=== PATIENT | male | born 1975 | race Caucasian/White ===

== ENCOUNTER 2020-03-04 08:36 | Emergency (ER) | payer OTHER ==
[2020-03-04 09:43] LABS: HEMOGLOBIN 16.6 gm/dl (14.0-17.5); RED BLOOD COUNT 5.33 M/UL (4.20-5.50); WHITE BLOOD COUNT 4.2 K/UL (4.5-11.0)
[2020-03-04 10:12] LABS: BUN/CREATININE RATIO 14 (0-10)
[2020-09-04] MEDS ORDERED: POTASSIUM CHLO20 ME1 PO (12:19)
[2020-09-04] MEDS ORDERED: BREO ELLIPTA 21 EACH HHN (12:21)
[2020-09-04] MEDS ORDERED: MOBIC15 MG PO (12:22)
[2020-09-04] MEDS ORDERED: MUCINEX600 MG PO ×2 (12:24→12:25)
[2020-09-04] MEDS ORDERED: ALKA-SELTZER D1 EACH PO (12:27)
[2020-09-04] MEDS ORDERED: IBU-200200 MG PO (12:28)
[2020-09-04] MEDS ORDERED: PEPCID20 MG PO (12:29)
== END 2020-03-04 11:15 | disposition home or self-care (01) ==
LOC: ER1 08:36
PROVIDERS: Physician Assistant
DX: U07.1 COVID-19 (principal); E87.6 Hypokalemia; J45.909 Unspecified asthma, uncomplicated
CPT/HCPCS: 71045; 80053; 85025; 93005; 99285

== ENCOUNTER → 2020-04-03 | Outpatient (CLI) | payer OTHER ==
[~2020-04-03] MED LIST: ALKA-SELTZER D1 EACH PO; BREO ELLIPTA 21 EACH HHN; BREZTRI AEROS10.7 GM INH; CELEBREX200 MG PO; CETIRIZINE HCL10 MG PO; FLONASE 0.05% N16 GM; GABAPENTIN300 MG PO; HYGROTON TAB 2525 MG PO; IBU-200200 MG PO; IBUPROFEN200 M1 PO; MELOXICAM15 MG PO; MOBIC15 MG PO; MONTELUKAST SOD10 MG PO; MUCINEX600 MG PO; OMEGA 3 FISH O1 EACH PO; OSTEO BI-FLEX1 EAC2 PO; PATIENT'S OWN MEDICA PO; PEPCID20 MG PO; POTASSIUM CHLO20 ME1 PO; ROXICODONE TAB 55 MG GT; ROXICODONE5 MG PO; VENTOLIN HFA 66.7 GM INH; VITAMIN B-121000 MC3 PO; ZOFRAN 4 MG TAB4 MG PO; [UNRECOGNIZED DRUG - OTHER] PO; [UNRECOGNIZED DRUG - OTHER] PO
== END ==
LOC: KOH-I 08:13
DX: M19.012 Primary osteoarthritis, left shoulder (principal)
CPT/HCPCS: 73200

== ENCOUNTER → 2020-05-16 | Outpatient (CLI) | payer OTHER ==
[2020-05-16 12:53] LABS: HEMOGLOBIN 16.8 gm/dl (14.0-17.5); RED BLOOD COUNT 5.32 M/UL (4.20-5.50)
[2020-05-16 13:10] LABS: BUN/CREATININE RATIO 17 (0-10)
== END ==
LOC: OPSV2 11:51 → EDSTATUS 12:00 → OPSV2 12:00
PROVIDERS: Orthopaedic Surgery
DX: Z01.812 Encounter for preprocedural laboratory examination (principal); Z01.810 Encounter for preprocedural cardiovascular examination; Z01.818 Encounter for other preprocedural examination; M19.012 Primary osteoarthritis, left shoulder
CPT/HCPCS: 36415; 71046; 80048; 81001; 85025; 85610; 85730; 87081; 93005

== ENCOUNTER 2020-05-24 05:59 | Inpatient (IN) | payer OTHER ==
[~2020-05-24] VITALS: Ht 190.5 cm; Wt 159.2 kg
[2020-05-24] MEDS ORDERED: CETIRIZINE HCL10 MG PO (06:53)
[2020-05-24] MEDS ORDERED: FLONASE 0.05% N16 GM (06:53)
[2020-05-24] MEDS ORDERED: HYGROTON TAB 2525 MG PO (06:54)
[2020-05-24] MEDS ORDERED: MONTELUKAST SOD10 MG PO (06:54)
[2020-05-24] MEDS ORDERED: VENTOLIN HFA 66.7 GM INH (06:55)
[2020-05-24] MEDS ORDERED: [UNRECOGNIZED DRUG - OTHER] PO (06:55)
[2020-05-24] MEDS ORDERED: BREZTRI AEROS10.7 GM INH (06:55)
[2020-05-24] MEDS ORDERED: [UNRECOGNIZED DRUG - OTHER] PO (06:56)
[2020-05-24] MEDS ORDERED: IBUPROFEN200 M1 PO (06:56)
[2020-05-24] MEDS ORDERED: MELOXICAM15 MG PO (06:56)
[2020-05-24] MEDS ORDERED: OSTEO BI-FLEX1 EAC2 PO (06:57)
[2020-05-24] MEDS ORDERED: OMEGA 3 FISH O1 EACH PO (06:57)
[2020-05-24 15:54] LABS: HEMOGLOBIN 14.5 gm/dl (14.0-17.5); RED BLOOD COUNT 4.66 M/UL (4.20-5.50); WHITE BLOOD COUNT 13.2 K/UL (4.5-11.0)
[2020-05-24 16:10] LABS: BUN/CREATININE RATIO 23 (0-10)
[2020-05-25 03:41] LABS: RED BLOOD COUNT 4.5 M/UL (4.20-5.50)
[2020-05-25 04:09] LABS: BUN/CREATININE RATIO 18 (0-10)
[2020-05-25] MEDS ORDERED: GABAPENTIN300 MG PO ×2 (08:27→14:50)
[2020-05-25] MEDS ORDERED: PATIENT'S OWN MEDICA PO (08:27)
[2020-05-25] MEDS ORDERED: ZOFRAN 4 MG TAB4 MG PO ×2 (08:27→14:53)
[2020-05-25] MEDS ORDERED: CELEBREX200 MG PO ×2 (08:27→14:51)
[2020-05-25] MEDS ORDERED: ROXICODONE TAB 55 MG GT (08:27)
[2020-05-25] MEDS ORDERED: ROXICODONE5 MG PO (14:49)
[2020-09-04] MEDS ORDERED: POTASSIUM CHLO20 ME1 PO (12:19)
[2020-09-04] MEDS ORDERED: BREO ELLIPTA 21 EACH HHN (12:21)
[2020-09-04] MEDS ORDERED: MOBIC15 MG PO (12:22)
[2020-09-04] MEDS ORDERED: MUCINEX600 MG PO ×2 (12:24→12:25)
[2020-09-04] MEDS ORDERED: ALKA-SELTZER D1 EACH PO (12:27)
[2020-09-04] MEDS ORDERED: IBU-200200 MG PO (12:28)
[2020-09-04] MEDS ORDERED: PEPCID20 MG PO (12:29)
== END 2020-05-25 14:40 | disposition home or self-care (01) | DRG 483 ==
LOC: OR 05:59 → EDSTATUS 07:30 → M/S 14:50
PROVIDERS: Physician Assistant; ADMIT Orthopaedic Surgery
PROC: 0LS40ZZ Reposition Left Upper Arm Tendon, Open Approach (ICD-10-PCS; 2020-05-24)
PROC: 0RRK0JZ Replacement of Left Shoulder Joint with Synthetic Substitute, Open Approach (ICD-10-PCS; principal; 2020-05-24 07:30)
DX: M19.012 Primary osteoarthritis, left shoulder (principal); Z20.822 Contact with and (suspected) exposure to COVID-19; J45.909 Unspecified asthma, uncomplicated; Z79.899 Other long term (current) drug therapy; Z85.828 Personal history of other malignant neoplasm of skin; Z98.890 Other specified postprocedural states
CPT/HCPCS: 36415; 73020; 80048; 80053; 85025; 94664; 94760; 97162; C1713; C1776; J0592; J0690; J1100; J1885; J2001; J2250; J2270; J2405; J2704; J2710; J2795; J3010; J3370; J7120; U0003

== ENCOUNTER → 2020-08-20 | Outpatient (CLI) | payer OTHER | LOC: KOH-I 15:00 | DX: Z01.818 Encounter for other preprocedural examination (principal); M43.16 Spondylolisthesis, lumbar region | CPT/HCPCS: 72131 ==

== ENCOUNTER → 2020-09-04 | Outpatient (CLI) | payer OTHER ==
[~2020-09-04] MED LIST changes: +ELIQUIS 5 MG TAB5 MG PO
[2020-09-04 11:06] LABS: RED BLOOD COUNT 5.77 M/UL (4.20-5.50); WHITE BLOOD COUNT 6.3 K/UL (4.5-11.0)
[2020-09-04 11:28] LABS: BUN/CREATININE RATIO 19 (0-10)
== END ==
LOC: OPSV2 09:00 → EDSTATUS 09:00 → OPSV2 09:17
PROVIDERS: Orthopaedic Surgery
DX: Z01.818 Encounter for other preprocedural examination (principal); M43.17 Spondylolisthesis, lumbosacral region; M54.16 Radiculopathy, lumbar region
CPT/HCPCS: 36415; 71046; 80048; 85027; 87081; 87086; 93005

== ENCOUNTER → 2020-09-16 | Outpatient (CLI) | payer OTHER ==
[2020-09-16 13:20] LABS: BUN/CREATININE RATIO 8 (0-10)
== END ==
LOC: LAB 10:43
PROVIDERS: Orthopaedic Surgery
DX: M54.16 Radiculopathy, lumbar region (principal); I10 Essential (primary) hypertension; Z98.1 Arthrodesis status
CPT/HCPCS: 36415; 80048; 85610; 85730; 86850; 86900; 86901

== ENCOUNTER 2020-09-17 06:08 | Inpatient (IN) | payer OTHER ==
[~2020-09-17] VITALS: Ht 190.5 cm; Wt 158.8 kg
[~2020-09-17 06:08] MED LIST changes: -ELIQUIS 5 MG TAB5 MG PO; -VITAMIN B-121000 MC3 PO
[2020-09-17 18:54] LABS: HEMOGLOBIN 15.5 gm/dl (14.0-17.5); RED BLOOD COUNT 5.29 M/UL (4.20-5.50); WHITE BLOOD COUNT 20.6 K/UL (4.5-11.0)
[2020-09-18 05:16] LABS: HEMOGLOBIN 13.9 gm/dl (14.0-17.5); RED BLOOD COUNT 4.77 M/UL (4.20-5.50)
[2020-09-18 05:30] LABS: WHITE BLOOD COUNT 14.5 K/UL (4.5-11.0)
[2020-09-18] MEDS ORDERED: VENTOLIN HFA 66.7 GM INH (12:23)
[2020-09-18] MEDS ORDERED: VITAMIN B-121000 MC3 PO (12:28)
[2020-09-19 03:14] LABS: HEMOGLOBIN 12.5 gm/dl (14.0-17.5); RED BLOOD COUNT 4.31 M/UL (4.20-5.50); WHITE BLOOD COUNT 11.4 K/UL (4.5-11.0)
[2020-09-19 03:42] LABS: BUN/CREATININE RATIO 12 (0-10)
[2020-09-20 03:43] LABS: HEMOGLOBIN 11.2 gm/dl (14.0-17.5)
[2020-09-20 03:48] LABS: RED BLOOD COUNT 3.84 M/UL (4.20-5.50); WHITE BLOOD COUNT 8.3 K/UL (4.5-11.0)
[2020-09-20 04:01] LABS: BUN/CREATININE RATIO 11 (0-10)
[2020-09-21 05:56] LABS: RED BLOOD COUNT 3.75 M/UL (4.20-5.50); WHITE BLOOD COUNT 7.1 K/UL (4.5-11.0)
[2020-09-21 06:18] LABS: BUN/CREATININE RATIO 10 (0-10)
--- NOTE | 2020-09-21 11:38 | NUR ---
1100: PER VERBAL ORDER MAGDALENA RETANA BILATERAL HEMAVACS REMOVED WITH 2 X 2 DRESSING APPLIED AND COVERED WITH TEGADERMS. SMALLER AQUACELL DRESSING APPLIED TO INCISION SITE, MULTIPLE DOMINGO INTACT, WELL APPROXIMATED.
[2020-09-22 05:57] LABS: HEMOGLOBIN 10.9 gm/dl (14.0-17.5); RED BLOOD COUNT 3.77 M/UL (4.20-5.50); WHITE BLOOD COUNT 7.4 K/UL (4.5-11.0)
[2020-09-22 06:20] LABS: BUN/CREATININE RATIO 11 (0-10)
--- NOTE | 2020-09-22 10:21 | NUR ---
PATIENT HAD A TEMPERATURE OF 100.4 @ 09:59, CHECKED TWICE BY NURSES AID. DR. ARANDA NOTIFIED BY PHONE. DR ARANDA STATED "THATS FINE, NO PROBLEM"
--- NOTE | 2020-09-22 10:52 | NUR ---
PATIENT LOST IV DURING TRANSMISSION WORKER. ACCORDING TO THE NURSE IN REPORT TWO ATTEMPTS WERE MADE TO START NEW IV WITH NO SUCCESS. TRANSMISSION WORKER NURSE ALSO SUGGESTED PATIENT MAY GO HOME 09/22/20. NURSE PRACTITIONER HAS BEEN MADE AWARE THAT PATIENT HAS NO IV ACCESS. WILL CONTINUE TO MONITOR.
--- NOTE | 2020-09-24 06:08 | NUR ---
PATIENT ASKED FOR PAIN MEDICINE AND WAS TAKE OXYCODONE, HE STATED HE WANTED THE ONE THAT GOES IN HIS IV. I TOLD THE PATIENT THAT WAS ONLY FOR IF HE COULDN'T SWALLOW, PATIENT STATED 'WELL I CAN'T SWALLOW THEN'. PATIENT RECIEVED TWO DOSES OF DILAUDID DURING PR INTERNSHIP.
[2020-09-25 08:07] LABS: HEMOGLOBIN 11.4 gm/dl (14.0-17.5); RED BLOOD COUNT 3.96 M/UL (4.20-5.50); WHITE BLOOD COUNT 6.8 K/UL (4.5-11.0)
[2020-09-25 08:20] LABS: BUN/CREATININE RATIO 8 (0-10)
[2020-09-25] MEDS ORDERED: ELIQUIS 5 MG TAB5 MG PO (14:32)
== END 2020-09-25 15:15 | disposition home or self-care (01) | DRG 459 ==
LOC: OR 06:08 → M/S 18:45 → CCU 18:45 → M/S 09-18 10:32
PROVIDERS: Internal Medicine; Internal Medicine Infectious Disease; ADMIT Orthopaedic Surgery
PROC: 0SG00K1 Fusion of Lumbar Vertebral Joint with Nonautologous Tissue Substitute, Posterior Approach, Posterior Column, Open Approach (ICD-10-PCS; 2020-09-17)
PROC: 01NB0ZZ Release Lumbar Nerve, Open Approach (ICD-10-PCS; 2020-09-17)
PROC: 4A11X4G Monitoring of Peripheral Nervous Electrical Activity, Intraoperative, External Approach (ICD-10-PCS; 2020-09-17)
PROC: 0SG30K1 Fusion of Lumbosacral Joint with Nonautologous Tissue Substitute, Posterior Approach, Posterior Column, Open Approach (ICD-10-PCS; principal; 2020-09-17 08:30)
DX: M43.17 Spondylolisthesis, lumbosacral region (principal); I26.99 Other pulmonary embolism without acute cor pulmonale; N17.9 Acute kidney failure, unspecified; Z68.41 Body mass index [BMI] 40.0-44.9, adult; J98.11 Atelectasis; Z20.822 Contact with and (suspected) exposure to COVID-19; N18.2 Chronic kidney disease, stage 2 (mild); E11.22 Type 2 diabetes mellitus with diabetic chronic kidney disease; E66.01 Morbid (severe) obesity due to excess calories; K21.9 Gastro-esophageal reflux disease without esophagitis; I10 Essential (primary) hypertension; K44.9 Diaphragmatic hernia without obstruction or gangrene; F41.9 Anxiety disorder, unspecified; E86.0 Dehydration; M54.17 Radiculopathy, lumbosacral region; J45.909 Unspecified asthma, uncomplicated; E11.65 Type 2 diabetes mellitus with hyperglycemia; M06.9 Rheumatoid arthritis, unspecified; E87.6 Hypokalemia; M81.0 Age-related osteoporosis without current pathological fracture; M48.07 Spinal stenosis, lumbosacral region; Z96.612 Presence of left artificial shoulder joint; Z83.3 Family history of diabetes mellitus; Z80.8 Family history of malignant neoplasm of other organs or systems
CPT/HCPCS: 36415; 71045; 72100; 76000; 80048; 80053; 82962; 83036; 85025; 85027; 85610; 85730; 86850; 86900; 86901; 87040; 87081; 87086; 93970; 94640; 94760; 97116; 97116-GP-CQ; 97162; 97166; 97530; 97530-GP-CQ; 97535; C1713; C1762; C1781; J0690; J1040; J1100; J1170; J1644; J1650; J2001; J2250; J2370; J2405; J2704; J2710; J3010; J3370; J7030; J7040; J7120; Q9967; U0002

== ENCOUNTER 2020-09-26 05:51 | Emergency (ER) | payer OTHER ==
[~2020-09-26 05:51] MED LIST changes: +ELIQUIS 5 MG TAB5 MG PO; +VITAMIN B-121000 MC3 PO
[2020-09-26 06:53] LABS: HEMOGLOBIN 10.9 gm/dl (14.0-17.5); RED BLOOD COUNT 3.94 M/UL (4.20-5.50); WHITE BLOOD COUNT 8.1 K/UL (4.5-11.0)
[2020-09-26 06:55] LABS: BUN/CREATININE RATIO 9 (0-10)
== END 2020-09-26 09:08 | disposition home or self-care (01) ==
LOC: ER1 05:51
PROVIDERS: Physician Assistant
DX: R20.2 Paresthesia of skin (principal); J45.909 Unspecified asthma, uncomplicated; Z86.711 Personal history of pulmonary embolism; Z95.0 Presence of cardiac pacemaker
CPT/HCPCS: 80053; 82550; 82553; 83874; 83880; 84484; 85025; 85610; 85730; 93005; 99285